=== PATIENT | female | born 1970 | race Hispanic/Latino ===

== ENCOUNTER → 2024-02-06 08:05 | Outpatient (REF) | payer OTHER, SELFPAY | LOC: WDC 08:05 | PROVIDERS: ATTENDING PHYSICIAN Internal Medicine | DX: Z12.31 Encounter for screening mammogram for malignant neoplasm of breast (principal) | CPT/HCPCS: 77063; 77067 ==

== ENCOUNTER → 2024-03-31 11:06 | Outpatient (REF) | payer OTHER, SELFPAY ==
[2024-03-31 11:55] LABS: % Basophils 0.9 % (0-2); % Eosinophils 18.5 % (0-6); % Immature Granulocytes 0.2 % (0-0.5); % Lymphocytes 35.5 % (20.5-51.1); % Monocytes 6.6 % (1.7-9.3); % Neutrophils 38.3 % (42.2-75.2); Absolute Basophils 0.1 10^3/uL (0-0.2); Absolute Eosinophils 1.2 10^3/uL (0-0.7); Absolute Lymphocytes 2.3 10^3/uL (1.2-3.4); Absolute Monocytes 0.4 10^3/uL (0.1-0.6); Absolute Neutrophils 2.4 10^3/uL (1.4-6.5); Hematocrit 42.5 % (37.0-47.0); Mean Corp Hgb Conc. 32.9 g/dL (33.0-37.0); Mean Corpuscular Hgb 27.5 pg (27.0-31.0); Mean Corpuscular Volume 83.3 fL (81.0-99.0); Mean Platelet Volume 11.4 fL (7.4-10.4); Nucleated Red Blood Cells % 0 %; Platelet Count 237 10^3/uL (130-400); Reticulocyte Count 1.9 % (0.4-2.8); White Blood Cell Count 6.3 10^3/uL (4.8-10.8)
[2024-03-31 12:15] LABS: Glycohemoglobin (HgbA1c) 6.1 % (4.0-5.6)
== END ==
LOC: CLINIC 11:06
PROVIDERS: ATTENDING PHYSICIAN Internal Medicine
DX: M25.50 Pain in unspecified joint (principal); Z13.1 Encounter for screening for diabetes mellitus
CPT/HCPCS: 36415; 83036; 85025; 85045

== ENCOUNTER → 2024-04-02 11:05 | Outpatient (REF) | payer OTHER, SELFPAY ==
[2024-04-02 13:24] LABS: ALT (SGPT) 95 U/L (0-35); AST (SGOT) 96 U/L (14-36); Albumin 4.3 g/dl (3.5-5.0); Alkaline Phosphatase 104 U/L (38-126); Blood Urea Nitrogen 16 mg/dl (7-17); Calcium 9.4 mg/dl (8.4-10.2); Carbon Dioxide 28 mmol/L (22-30); Chloride 104 mmol/L (98-107); Glucose 101 mg/dl (70-99); Potassium 4.9 mmol/L (3.5-5.1); Sodium 141 mmol/L (135-145); Total Bilirubin 0.3 mg/dl (0.2-1.3); Total Protein 7.7 g/dl (6.3-8.2); eGFR > 60.00
== END ==
LOC: REG 11:05
PROVIDERS: ATTENDING PHYSICIAN Nurse Practitioner Adult Health
DX: M25.50 Pain in unspecified joint (principal); Z13.1 Encounter for screening for diabetes mellitus
CPT/HCPCS: 36415; 80053

== ENCOUNTER → 2024-04-16 10:43 | Outpatient (REF) | payer OTHER, SELFPAY ==
[2024-04-16 14:42] LABS: Erythrocyte Sed Rate 28 mm/hour (0-20)
[2024-04-18 01:18] LABS: CCP Antibody IgG/IgA 5 Units (0-19)
[2024-04-18 01:20] LABS: ANA, IgG Reflex to HEp-2 None Detected (None Detected)
== END ==
LOC: RAD 10:43
PROVIDERS: ATTENDING PHYSICIAN Internal Medicine; FAMILY PHYSICIAN Nurse Practitioner Adult Health
DX: M25.50 Pain in unspecified joint (principal); R73.03 Prediabetes
CPT/HCPCS: 36415; 73565; 85652; 86038; 86140; 86200; 86430

== ENCOUNTER 2024-07-21 16:07 | Emergency (ER) | payer SELFPAY ==
[2024-07-21 16:12] VITALS: BP 174/111
[2024-07-21 16:56] LABS: ALT (SGPT) 84 U/L (0-35); AST (SGOT) 94 U/L (14-36); Albumin 4.8 g/dl (3.5-5.0); Alkaline Phosphatase 97 U/L (38-126); Blood Urea Nitrogen 10 mg/dl (7-17); Calcium 9.8 mg/dl (8.4-10.2); Carbon Dioxide 26 mmol/L (22-30); Chloride 103 mmol/L (98-107); Glucose 134 mg/dl (70-99); INR 0.97; PT 13.3 Sec (11.4-14.6); Sodium 139 mmol/L (135-145); Total Bilirubin 0.8 mg/dl (0.2-1.3); Total Protein 8.2 g/dl (6.3-8.2); eGFR > 60.00
[2024-07-21 16:57] LABS: APTT 32.7 Sec (23.4-35.0)
[2024-07-21 17:05] LABS: Troponin I < 0.012 ng/ml
--- NOTE | 2024-07-21 18:26 | ED.GENMED ---
History of Present Illness
General
Chief Complaint: Headache
Time Seen by Provider: 07/21/24 18:26
History of Present Illness
History of Present Illness:
TIME OF INITIAL ENCOUNTER: 6:30 PM
HPI: Patient has multiple complaints but primarily is concerned of headache. The headache has been ongoing over the last couple of weeks. Most of the people in the family had 'a cold' around the start of the headache. She has ringing in the left
ear. She is found to be hypertensive but does not take any antihypertensives. She had some paresthesias and shortness of breath earlier as well.
EXAM:
GENERAL: Well appearing but appears mildly uncomfortable
HEENT: Moist oral mucosa, normal TMs bilaterally, hypertensive, there is no tenderness to palpation over the temples
CARDIOVASCULAR: No murmurs, normal heart rate, regular rhythm, No chest wall tenderness
PULMONARY: No respiratory distress, breath sounds are clear and equal
ABDOMEN: Soft with no peritoneal signs, no tenderness
NEUROLOGIC: Excellent strength all extremities, no coordination deficits
PSYCHIATRIC: Appropriate mental status, normal insight and judgement, communicating with family appropriately
EXTREMITIES: Nontender, no edema, moves all extremities equally
SKIN: No rash, no lesions
NUMBER AND COMPLEXITY OF PROBLEMS ADDRESSED AT THE ENCOUNTER
� Chronic conditions affecting care: GERD, frequent headaches
� Acute Exacerbation and/or Progression of Chronic Illness: This is an acute problem
� Differential Diagnosis includes: Intracranial hemorrhage, intracranial mass, viral syndrome, hypertensive headache, giant cell arteritis
AMOUNT AND/OR COMPLEXITY OF DATA TO BE REVIEWED AND ANALYZED
� I performed an independent evaluation of and my interpretation is:
EKG:
CT: CAT scan of the brain shows no acute
X-rays:
Laboratory Studies: Chemistries unremarkable exception of mild transaminase elevation, troponin less than 0.012
Other:
� Review of other/old records: I reviewed records, the patient was seen here with a presumed viral illness in August 2022
� Clinical information was obtained by an independent historian: I spoke to daughter at bedside
� Prescriptions/Medications Considered but not given:
� Further testing considered but not performed:
RISK OF COMPLICATIONS AND/OR MORBIDITY OR MORTALITY OF PATIENT MANAGEMENT
� Social determinants of health affecting care: Lives at home, speaks [place]
� Discussion with other providers:
� Escalation of care including admission/observation vs risk of discharge considered: Will give Tylenol and Toradol as well as fluids. Systolics went from 170s to 150s without intervention. CT brain unremarkable.
ANY OTHER UPDATES:
8:20 PM: I reassessed patient. She was given Tylenol and Toradol - overall the pain is improved but the head pressure persists. Her blood pressure did spontaneously improve without any intervention. Unclear etiology of patient's symptoms.
However several family members had cold symptoms recently and I wonder if this could be related to a viral syndrome. Brain CT reassuring.
Past History
Past History
ED Past Medical History: None, GERD, Hypercholesterolemia and Other (Anemia)
ED Past Surgical History: Appendectomy and Cholecystectomy
Social History
Tobacco: Non-smoker
Alcohol: None
Drug: None
Personal:
Living: with family
Employment: Not employed
Family History
Family History: Other (Noncontributory)
Phy Exam
Physical Exam
Physical Exam:
See HPI
Course
Orders/Labs/Results
Orders:
Orders
07/21/24 16:17
Electrocardiogram (*1) Urgent
Reason for Study: Other
Other Reason for Exam: Possible Stroke
07/21/24 16:[address] [CT Head W/o Iv Contrast] Urgent
Comment:
Reason For Exam: headache
EKG- Treatment ONCE
07/21/24 16:27
Comprehensive Metabolic Panel Urgent
PTT Urgent
Prothrombin Time Urgent
Troponin I Urgent
07/21/24 18:36
0.9% Sodium Chloride 500 ml [Nss] 500 ml IV BOLUS
Acetaminophen [Tylenol] 1,000 mg PO NOW STA
Ketorolac [Toradol] 15 mg IV NOW STA
07/21/24 18:39
CBC/With ESR Urgent
Abnormal Lab Results
07/21/24 07/21/24
16:27 18:39
MCHC 32.8 L g/dL
(33.0-37.0)
RDW 14.9 H %
(11.5-14.5)
Absolute Eos (auto) 1.1 H 10^3/uL
(0-0.7)
Neutrophils % 41.0 L %
(42.2-75.2)
Eosinophils % 14.9 H %
(0-6)
ESR 23 H mm/hour
(0-20)
Creatinine 0.5 L mg/dL
(0.6-1.0)
Glucose 134 H mg/dl
(70-99)
AST 94 H U/L
(14-36)
ALT 84 H U/L
(0-35)
07/21/24 18:39
07/21/24 16:27
Vital Signs
Initial and Last Documented VS:
Initial Vital Signs
Temp Pulse Resp BP Pulse Ox
37.0 C 107 16 174/111 98
07/21/24 16:12 07/21/24 16:12 07/21/24 16:12 07/21/24 16:12 07/21/24 16:12
Last Documented Vital Signs
Temp Pulse Resp BP Pulse Ox
37.0 C 74 16 131/82 97
07/21/24 16:12 07/21/24 19:49 07/21/24 20:05 07/21/24 20:00 07/21/24 20:00
*Critical Care Note
Total Time (30-74mins, 75-104mins- exclusive of procedures): Not Applicable
ED Attending Note
-
Portions of this chart may have been created with voice recognition software.� Occasional wrong word or��sound alike� substitutions may have occurred due to the inherent limitations of voice recognition software.
Discharge Plan
Departure
Patient Disposition: Home (Routine Discharge)
Date of Disposition: 07/21/24
Time of Disposition: 20:28
Patient with high blood pressure during this ER visit?: Yes
Discharge Problem:
Headache
Instructions: Headache, Adult (DC), BLOOD PRESSURE
Prescriptions:
No Action
Excedrin
1 tab PO PRN PRN (Reason: headache)
meloxicam 7.5 MG tablet
PO DAILY
Patient Comments:
unknown exact dose
omeprazole [Prilosec] 10 MG capsule,delayed release(DR/EC)
PO DAILY
Patient Comments:
unknown exact dose
hydrocodone-acetaminophen 1 TABLET tablet
1 tab PO Q4HPRN PRN (Reason: breakthrough pain) Qty: 10 0RF
metronidazole 500 MG tablet
500 mg PO TID Qty: 21 0RF
metronidazole 500 MG tablet
500 mg PO TID Qty: 21 0RF
ondansetron 4 mg tablet,disintegrating
4 mg PO Q8H PRN (Reason: nausea and vomiting) Qty: 10 0RF
Referrals:
NONE,* [Family Provider] -
Activity Restrictions/Additional Instructions:
The cause of your symptoms is unclear. Basic blood work is normal. Inflammatory marker called a sed rate is minimally elevated but not consistent with a condition called giant cell arteritis. Cardiac blood work is normal. CAT scan your brain was
normal. Follow with your primary care doctor also for blood pressure recheck. I recommend 3-4 xdis-luc-tzigrqk ibuprofen (Motrin) every 8 hours with food for a few days. You can also take Tylenol as well. Return here if worse.
Interventions
Interventions:
*Risk Screen - Suicide Last Done: 07/21/24 16:12
*General Assessment Last Done: 07/21/24 18:32
*Neglect/Abuse Screening Last Done: 07/21/24 16:12
ED- Fall Risk Assessment Last Done: 07/21/24 20:38
*ED COVID-19 Vaccine History Last Done: 07/21/24 18:32
*Nursing Disposition Last Done: 07/21/24 20:38
ED- Neurological Assessment Last Done: 07/21/24 18:32
Discharge Date and Time
Discharge Date/Time: 07/21/24 20:41
Print Language: [id number]
[2024-07-21 18:35] VITALS: BP 150/89
[2024-07-21] MEDS: NSS 500 IV (18:43)
[2024-07-21] MEDS: TORADOL 15 MG IV (18:45)
[2024-07-21] MEDS: TYLENOL 1000 MG PO (18:45)
[2024-07-21 18:49] LABS: % Basophils 1.2 % (0-2); % Eosinophils 14.9 % (0-6); % Immature Granulocytes 0.1 % (0-0.5); % Monocytes 7.8 % (1.7-9.3); Absolute Basophils 0.1 10^3/uL (0-0.2); Absolute Eosinophils 1.1 10^3/uL (0-0.7); Absolute Lymphocytes 2.6 10^3/uL (1.2-3.4); Absolute Monocytes 0.6 10^3/uL (0.1-0.6); Hematocrit 44.2 % (37.0-47.0); Hemoglobin 14.5 g/dL (12.0-16.0); Mean Corp Hgb Conc. 32.8 g/dL (33.0-37.0); Mean Corpuscular Hgb 27.2 pg (27.0-31.0); Mean Corpuscular Volume 82.9 fL (81.0-99.0); Mean Platelet Volume 9.7 fL (7.4-10.4); Nucleated Red Blood Cells % 0 %; Platelet Count 302 10^3/uL (130-400); Red Blood Cell Count 5.33 10^6/uL (4.20-5.40); Red Cell Dist. Width 14.9 % (11.5-14.5); White Blood Cell Count 7.4 10^3/uL (4.8-10.8)
[2024-07-21 19:00] VITALS: BP 101/87
[2024-07-21 19:01] LABS: Erythrocyte Sed Rate 23 mm/hour (0-20)
[2024-07-21 20:00] VITALS: BP 131/82
== END 2024-07-21 20:41 | disposition home or self-care (01) ==
LOC: EMR 16:07
PROVIDERS: Emergency Medicine; EMERGENCY PHYSICIAN Emergency Medicine
DX: R51.9 Headache, unspecified (principal); E78.00 Pure hypercholesterolemia, unspecified; K21.9 Gastro-esophageal reflux disease without esophagitis; Z90.49 Acquired absence of other specified parts of digestive tract
CPT/HCPCS: 96374; 96361; 99284; 70450; 80053; 84484; 85025; 85610; 85652; 85730; 93005

== ENCOUNTER → 2025-02-01 11:44 | Outpatient (REF) | payer OTHER, SELFPAY ==
[2025-02-01 12:58] LABS: Hematocrit 42.4 % (37.0-47.0); Hemoglobin 13.7 g/dL (12.0-16.0); Mean Corp Hgb Conc. 32.3 g/dL (33.0-37.0); Mean Corpuscular Volume 84.8 fL (81.0-99.0); Nucleated Red Blood Cells % 0 %; Platelet Count 283 10^3/uL (130-400); Red Cell Dist. Width 14.3 % (11.5-14.5); Reticulocyte Count 1.9 % (0.4-2.8)
[2025-02-01 13:00] LABS: Urine Character Clear (Clear)
[2025-02-01 13:09] LABS: ALT (SGPT) 120 U/L (0-35); AST (SGOT) 100 U/L (14-36); Albumin 4.4 g/dl (3.5-5.0); Alkaline Phosphatase 101 U/L (38-126); Blood Urea Nitrogen 10 mg/dl (7-17); Calcium 9.5 mg/dl (8.4-10.2); Carbon Dioxide 27 mmol/L (22-30); Chloride 106 mmol/L (98-107); Glucose 107 mg/dl (70-99); HDL Cholesterol 37 mg/dl; LDL Cholesterol, Calculated 161 mg/dl; Potassium 4.4 mmol/L (3.5-5.1); Sodium 140 mmol/L (135-145); Total Protein 7.6 g/dl (6.3-8.2); Very Low Density Lipoprotein 57 mg/dl (0-30); eGFR > 60.00
[2025-02-01 13:39] LABS: Urine Squamous Cell >30 /LPF (Few)
[2025-02-01 14:15] LABS: Glycohemoglobin (HgbA1c) 7.0 % (4.0-5.6)
== END ==
LOC: CLINIC 11:44
PROVIDERS: ATTENDING PHYSICIAN Internal Medicine
DX: R73.03 Prediabetes (principal); M19.90 Unspecified osteoarthritis, unspecified site
CPT/HCPCS: 36415; 72114; 80053; 80061; 81003; 81015; 83036; 85025; 85045; 87086

== ENCOUNTER → 2025-03-25 08:15 | Outpatient (REF) | payer OTHER, SELFPAY | LOC: WDC 08:15 | PROVIDERS: ATTENDING PHYSICIAN Internal Medicine; FAMILY PHYSICIAN Nurse Practitioner Adult Health | DX: Z12.31 Encounter for screening mammogram for malignant neoplasm of breast (principal); M19.90 Unspecified osteoarthritis, unspecified site | CPT/HCPCS: 77063; 77067 ==